=== PATIENT | male | born 1990 | race Caucasian/White ===

== ENCOUNTER 2021-04-21 11:35 | Emergency (ER) | payer OTHER, SELFPAY ==
[2021-04-21 11:39] VITALS: BP 125/82; PULSE 101; RESP 17; TEMP 37.1; O2SAT 93; BMI 21.4
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
[2021-04-21 13:06] LABS: Amphetamines Screen Urine Negative (Negative); Barbiturates Screen Urine Negative (Negative); Benzodiazepines Screen Urine Negative (Negative); Cocaine Screen Urine Negative (Negative); Opiate Screen Urine Negative (Negative); PCP Screen Urine Negative (Negative); THC Screen Urine Positive (Negative)
[2021-04-21 13:18] LABS: Alcohol Level 367 mg/dL (0-10)
[2021-04-21 13:52] VITALS: BP 116/70; PULSE 94; O2SAT 96
== END 2021-04-21 13:58 | disposition home or self-care (01) ==
PROVIDERS: Emergency Provider Nurse Practitioner Family
DX: S01.81XA Laceration without foreign body of other part of head, initial encounter (principal); F10.129 Alcohol abuse with intoxication, unspecified; Y90.8 Blood alcohol level of 240 mg/100 ml or more
CPT/HCPCS: 12013; 70450; 72125; 80306; 80307; 99283